=== PATIENT | female | born 1930 | race Caucasian/White ===

== ENCOUNTER → 2016-07-08 | Outpatient (CLI) | payer MEDICARE, OTHER ==
[~2016-07-08] MED LIST: ASPI-860 PO; ATOR10TA PO; CALC1CAP21 PO; CHOL200025 PO; CYAN250014 PO; CYCL10TA45 PO; DICL100G13 TOP; GLUC1CAP10 PO; HYDR-3811 PO; LEVO100T7 PO; MULT-1066 PO; VIT1CAPS43 PO
[2016-07-08 14:16] VITALS: BP 131/83
--- NOTE | 2016-07-08 14:16 | Urgent Care T Sheet Gen (E) ---
Intake General Temperature (Fahrenheit): 97.7 Pulse: 74 Blood Pressure Systolic: 131 Blood Pressure Diastolic: 83 Respirations: 18 SPO2: 97 Description of Symptoms Patient presents with radicular LBP since yesterday. Patient was at the eye doctor yesterday when she reached forward to picking supervisor her purse when she felt an immediate and sharp pain in the L low back. States her back locked up on her. Notes constant pain which is increased with sitting. Pain radiates down the posterior L leg down to the knee. No weakness or numbness in the leg aside from her normal residual numbness following leg surgery. No loss of bowel or bladder function. Been using OTC icy hot patches and heating pad. Patient has a history of lumbar laminectomy with fusion. Respiratory Constitutional Symptoms: No syptoms reported EENTM: No symptoms reported Respiratory: No symptoms reported Cardiovascular: No symptoms reported Musculoskeletal: Back pain Muscle pain Muscle stiffness Neurological: Numbness All Other Systems Reviewed Remaining Systems: All other systems reviewed with negative findings Physical Exam Physical Exam General Appearance: WD/WN No apparent distress Back Exam: Muscle spasm Skin Exam: Normal color Other (surgical incision along the lower lumbar spine) Neurologic/Psychiatric Exam: No motor deficits Comment very tender along the L lower lumbar paraspinal muscles. palpation doesn't cause radiating leg pain. muscles are spasmed. also very tender over the L SI joint. patient leans to the R while sitting to offset pain. no pain over the L piriformis muscle. internal and external L hip rotation causes groin pain but no back pain negative straight leg raise. normal strength in the L LE decreased sensation in the distal LE (normal for her). normal sensation in the proximal L LE Departure Urgent Care Impression Impression: Primary Impression: Low back pain Qualified Code: M54.42 - Lumbago with sciatica, left side Additional Impressions: Paraspinal muscle spasm SI (sacroiliac) joint dysfunction Departure Disposition: 01 HOME OR SELF-CARE Condition: Stable Referrals: SARITA SNOW MD (PCP) Additional Instructions: Long discussion with the patient regarding her symptoms and treatment. With her cardiac history and daily meds, I wanted to avoid oral anti- inflammatories. I have started her on Voltaren gel which she may apply QID to the affected area. I have also prescribed Flexeril TID prn spasm. Patient has taken this before and states it didn't make her very drowsy. She may continue with heating pad as needed. If no better by Monday, she is to call UC and I will refer her to PT for additional treatment. Her groin pain appears to be hip OA and not related to her acute LBP Patient understands DC instructions. All questions were answered. Scripts Diclofenac Sodium (Voltaren 1% Gel)100 Gm Gel1 Gm TOP QID PRN PAIN #1 TUBE Prov:ALEXX MUNSON 07/08/16 Cyclobenzaprine HCl (Flexeril)10 Mg [id number] Mg PO TID PRN SPASMS #30 TAB Ref 0 Prov:ALEXX MUNSON 07/08/16 End of report . ALEXX MUNSON Jul 08, 2016 14:16
== END ==
LOC: MHUC 13:21
PROVIDERS: ATTEND Physician Assistant
DX: M54.42 Lumbago with sciatica, left side (principal); M62.830 Muscle spasm of back
CPT/HCPCS: 99213

== ENCOUNTER 2016-07-19 07:24 | Emergency (ER) | payer MEDICARE, OTHER ==
[~2016-07-19] VITALS: Ht 149.9 cm; Wt 68.1 kg
[~2016-07-19 07:24] MED LIST changes: -ASPI-860 PO; -ATOR10TA PO; -CALC1CAP21 PO; -CHOL200025 PO; -CYAN250014 PO; -GLUC1CAP10 PO; -HYDR-3811 PO; -LEVO100T7 PO; -MULT-1066 PO; -VIT1CAPS43 PO
--- OUTSIDE RECORDS SUMMARY | 2016-07-19 07:30 | XMS REPORT | Summary of Care ---
Author Author Rosy Cornejo M.D. 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 Started 26-May-2009 ActiveAspirin 81 MG Oral Tablet TAKE 1 TABLET DAILY. Quantity: 30 Refills: 11 Started 26-Aug-2010 ActiveAtorvastatin Calcium 10 MG Oral Tablet TAKE 1 TABLET DAILY AT BEDTIME. Refills: 0 Started 18-Nov-2014 ActiveOmeprazole 20 MG Oral Capsule Delayed Release TAKE 1 CAPSULE DAILY. Quantity: 30 Refills: 6 Started 18-Nov-2014 ActiveGlucosamine 500 MG Oral Capsule TAKE DIRECTED. Refills: 0 Started 18-Nov-2014 ActiveBenzonatate 200 MG Oral Capsule TAKE 1 CAPSULE 2-3 TIMES DAILY. Refills: 0 Started 24-Mar-2015 Active Allergies and Adverse Reactions Name Dates Details Codeine Derivatives Status: Active Demerol SOLN Status: Active Penicillins Status: Active Sulfa Drugs Status: Active Procedures Procedure Dates Details History of Cath Stent Placement Completed: History of Transluminal Angioplasty - Each Additional Vessel Completed:September-2011 CABG Procedures not documented Immunization Name Dates Details Immunizations not documented Family History Father Name Dates Details Family history of cardiac disorder (V17.49, Z82.49) Status: Active Brother Name Dates Details Family history of cardiac disorder (V17.49, Z82.49) Status: Active Social History Smoking StatusUnknown if ever smoked Vital Signs Date Test Result Details 24-Mar-2015 14:28 BP Systolic 122 mm[Hg] Status: BP Diastolic 64 mm[Hg] Status: Heart Rate 76 /min Status: Weight 155 lb Status: Body Mass Index Calculated 30.27 kg/m2 Status: Body Surface Area Calculated 1.67 m2 Status: Results Date Description Value Details Results not documented Plan of Care Planned Observations Name Dates Details Planned Goals not documented Goal Planned Encounters Appointment; Provider: Schedule Radiology On 21-Nov-2014 09:00 Appointment; Provider: Guerita Almanzar On 10:00 Appointment; Provider: Guerita Almanzar On 01-Sep-2011 09:00 Appointment; Provider: Guerita Almanzar On 09:30 Instructions Instructions not documented Encounters Appointment; Rosy Cornejo Encounter Diagnosis: Problem not documented On 24-Mar-2015 14:30 Appointment; Rosy Cornejo Encounter Diagnosis: Problem not documented On 02-Dec-2014 15:00 Appointment; Rosy Cornejo Encounter Diagnosis: Problem not documented On 18-Nov-2014 16:00 Appointment; Javed Farris Encounter Diagnosis: Problem not documented On 14:30
[2016-07-19] MEDS ORDERED: HYDROmorphone 1 MG/ML (DILAUDID) SYRINGE IV ONE ×2 (07:50→09:20)
[2016-07-19] MEDS ORDERED: ONDANSETRON 2 MG/ML (Z0FRAN) 2 ML VIAL IV ONE (07:50)
[2016-07-19] MEDS ORDERED: VIT1CAPS43 PO (08:29)
[2016-07-19] MEDS ORDERED: CALC1CAP21 PO (08:29)
[2016-07-19] MEDS ORDERED: LEVO100T7 PO (08:29)
[2016-07-19] MEDS ORDERED: ATOR10TA PO (08:29)
[2016-07-19] MEDS ORDERED: CYAN250014 PO (08:53)
[2016-07-19] MEDS ORDERED: CHOL200025 PO (08:53)
[2016-07-19] MEDS ORDERED: GLUC1CAP10 PO (08:53)
[2016-07-19] MEDS ORDERED: MULT-1066 PO (08:53)
[2016-07-19] MEDS ORDERED: ASPI-860 PO (08:53)
[2016-07-19] MEDS ORDERED: NS IV 500 ML 500 ML IV SCH (09:10)
--- NOTE | 2016-07-19 09:10 | Diagnostic Imaging Report ---
PROCEDURE: CT lumbar spine without contrast. TECHNIQUE: Multiple contiguous axial images were obtained through the lumbar spine without the use of intravenous contrast. Sagittal and coronal reformations were then performed. INDICATION: Low back pain after fall. COMPARISON: None. DISCUSSION: Postoperative changes of posterior decompression and stabilization from L4 through S1 with bilateral transpedicular screws and interconnecting rods with additional posterior lateral bone graft material. No hardware complications identified. Moderate degenerative changes are noted within the bilateral sacroiliac joints. Moderately advanced degenerative disc disease is noted throughout the remainder of the lumbar spine. There is partial osseous fusion of the intervertebral disc space at the L4-L5 and L5-S1 levels. There is grade 1 retrolisthesis of L1 on L2 and L2 on L3, likely due to chronic facet arthropathy. 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 No acute compression fracture identified. Paraspinal soft tissues are unremarkable. IMPRESSION: 1. Postoperative and degenerative changes of the lumbar spine as described. No acute osseous abnormality identified. Dictated by: Dictated on workstation # [id number]
--- NOTE | 2016-07-19 10:13 | Diagnostic Imaging Report ---
Indication: Fall with right-sided chest pain. Discussion: Four views of the right ribs were obtained, no comparison. No displaced rib fracture or other acute osseous abnormality identified. The visualized heart and lungs are unremarkable. No pneumothorax. Median sternotomy is present. Impression: 1. Negative right ribs. Dictated by: Dictated on workstation # [id number]
[2016-07-19] MEDS ORDERED: HYDR-3811 PO (10:46)
[2016-07-19 11:07] VITALS: BP 131/56
== END 2016-07-19 11:00 | disposition home or self-care (01) ==
LOC: EDUNIT# 07:24 → ED 07:26
DX: G89.11 Acute pain due to trauma (principal); R07.81 Pleurodynia; M54.5 Low back pain; W18.39XA Other fall on same level, initial encounter; Y93.K9 Activity, other involving animal care; Y92.239 Unspecified place in hospital as the place of occurrence of the external cause
CPT/HCPCS: 71100; 72131; 96374; 96375; 96376; 99284; J1170; J2405; J7040; 99283

== ENCOUNTER → 2016-07-19 | Outpatient (CLI) | payer MEDICARE, OTHER | LOC: EMS 07:20 | PROVIDERS: ATTEND Emergency Medicine | DX: M54.89 Other dorsalgia (principal); W01.190A Fall on same level from slipping, tripping and stumbling with subsequent striking against furniture, initial encounter; Y93.89 Activity, other specified; Y92.008 Other place in unspecified non-institutional (private) residence as the place of occurrence of the external cause ==